=== PATIENT | female | born 1975 | race Caucasian/White ===

== ENCOUNTER → 2016-06-08 | Outpatient (CLI) | payer OTHER | END | disposition home or self-care (01) | LOC: US 05-27 15:00 | DX: N92.6 Irregular menstruation, unspecified (principal) ==

== ENCOUNTER → 2016-06-14 | Outpatient (CLI) | payer OTHER | END | disposition home or self-care (01) | LOC: US 18:41 | DX: M79.89 Other specified soft tissue disorders (principal) ==

== ENCOUNTER → 2016-07-16 | Outpatient (CLI) | payer OTHER ==
[2016-07-16 17:01] LABS: BUN 14 mg/dl (7-24); CARBON DIOXIDE 29 mmol/L (21-32); CHLORIDE 104 mmol/L (98-107); EST GLOM FILT AFRICAN AMERICAN > 60 ml/min; GLUCOSE 101 mg/dL (65-99); POTASSIUM 4.1 mmol/L (3.5-5.1); SODIUM 141 mmol/L (136-145)
== END | disposition home or self-care (01) ==
LOC: LAB 16:26
PROVIDERS: Nurse Practitioner Family
DX: R06.89 Other abnormalities of breathing (principal); R06.02 Shortness of breath; R06.2 Wheezing

== ENCOUNTER → 2016-09-11 | Outpatient (CLI) | payer OTHER | END | disposition home or self-care (01) | LOC: CARD 09-10 14:00 | DX: R60.0 Localized edema (principal) ==